=== PATIENT | female | born 1995 | race Caucasian/White ===

== ENCOUNTER 2017-01-16 14:10 | Emergency (ER) | payer OTHER ==
--- NOTE | 2017-01-16 15:35 | ED CLINICAL REPORT ---
Clinical Report - Physicians/Mid Levels [facility] [address] [place] [address] 01/16/2017 14:12 Patient: KATHERINE LIN Time Seen: 15:26; initial patient contact. Arrived- By private vehicle. Historian- patient. HISTORY OF PRESENT ILLNESS Chief Complaint: COUGH, SORE THROAT and SINUS PAIN. This started 3 days and is still present. The illness is described as mild. The patient has had sputum production, a cough, a sore throat, nasal congestion and sinus drainage. She has had chills and a nasal discharge. No difficulty breathing, chest discomfort or pain or fever. Additional history - The patient has had contact with a sick individual. Similar symptoms previously: Many times. Recent medical care: Not recently seen/assessed. REVIEW OF SYSTEMS No headache, eye discomfort or enlarged lymph nodes. All systems otherwise negative, except as recorded above. PAST HISTORY See nurses notes. Problems: Irritable Bowel Syndrome. Back Pain. Otitis Media. . . Conjunctivitis. Myofascial Strain. Bronchitis. Medications: None. Allergies: Amoxicillin. Compazine. Penicillin. Sulfa Antibiotics. SOCIAL HISTORY No alcohol use or drug use. FAMILY HISTORY Negative. ADDITIONAL NOTES The nursing notes have been reviewed with agreement regarding the chief complaint, HPI, ROS, PMH and patient medications and allergies. PHYSICAL EXAM Vital Signs: 01/16/2017 14:57 BP: 103/45. HR: 71. RR: 18. O2 saturation: 100%. Temp: 98.7 F. Have been reviewed. Appearance: Alert. No acute distress. Eyes: Pupils equal, round and reactive to light. Eyes normal inspection. ENT: Ears normal. Nose normal. Pharynx normal. Uvula midline. Neck: Normal inspection. Neck supple. CVS: Normal heart rate and rhythm. Heart sounds normal. Respiratory: No respiratory distress. Breath sounds normal. Abdomen: Soft and nontender. No organomegaly. CLINICAL IMPRESSION Acute viral rhinitis. Acute rotavirus gastroenteritis. No volume depletion or dehydration. INSTRUCTIONS No strenuous activity today. Do not work for two days until better. Take clear liquids only for the next 24 hours. Advance diet as tolerated. Do not smoke. No alcohol. Warnings: GENERAL WARNINGS: Return or contact your physician immediately if your condition worsens or changes unexpectedly, if not improving as expected, or if other problems arise. Prescription Medications: Zofran (orally disintegrating tablets) 4 mg: take 1 orally every 6 hours for 2 days as needed for nausea and vomiting. Dispense ten (10). No refill. Substitution is permissible. Fluticasone nasal spray: 1 spray to each nostril daily for congestion, until symptoms improve. Dispense one (1) unit. No refills. Follow-up: Follow up with your doctor Wednesday if not well. Understanding of the discharge instructions verbalized by patient. (Electronically signed by Kenzie Charles PA-C 01/16/2017 16:25)
--- NOTE | 2017-01-16 15:35 | ED ORDER SUMMARY ---
..... Patient: KATHERINE LIN OrderSheet [facility] VisitID: [id number] [address] [place] [address] 21y, F Registration Date/Time: 01/16/2017 ORDER SHEET Weight: 92.9 kg (stated) Allergies: Amoxicillin, Compazine, Penicillin, Sulfa Antibiotics GENERAL ORDERS: Urine Urgent (15:01/16/2017 Susan WIGGINS) (Ack 15:34 Nayeli) (15:38 Nena R.N.) UA-Culture if indicated Urgent (15:01/16/2017 Susan WIGGINS) (Ack 15:34 Nayeli) (15:38 Nena R.N.) MEDICATION ORDERS: IV FLUIDS: ORDER SHEET NOTES: [Electronically signed by Rosetta Bullard R.N. (16:01/16/2017)] [Electronically signed by Kenzie Charles PA-C (16:01/16/2017)] [Electronically locked/signed by Rosetta Bullard R.N. (16:01/16/2017)]
--- NOTE | 2017-01-16 15:35 | ED CLINICAL REPORT ---
Clinical Report - Physicians/Mid Levels [facility] [address] [place] [address] 01/16/2017 14:12 Patient: KATHERINE LIN Time Seen: 15:26; initial patient contact. Arrived- By private vehicle. Historian- patient. HISTORY OF PRESENT ILLNESS Chief Complaint: COUGH, SORE THROAT and SINUS PAIN. This started 3 days and is still present. The illness is described as mild. The patient has had sputum production, a cough, a sore throat, nasal congestion and sinus drainage. She has had chills and a nasal discharge. No difficulty breathing, chest discomfort or pain or fever. Additional history - The patient has had contact with a sick individual. Similar symptoms previously: Many times. Recent medical care: Not recently seen/assessed. REVIEW OF SYSTEMS No headache, eye discomfort or enlarged lymph nodes. All systems otherwise negative, except as recorded above. PAST HISTORY See nurses notes. Problems: Irritable Bowel Syndrome. Back Pain. Otitis Media. . . Conjunctivitis. Myofascial Strain. Bronchitis. Medications: None. Allergies: Amoxicillin. Compazine. Penicillin. Sulfa Antibiotics. SOCIAL HISTORY No alcohol use or drug use. FAMILY HISTORY Negative. ADDITIONAL NOTES The nursing notes have been reviewed with agreement regarding the chief complaint, HPI, ROS, PMH and patient medications and allergies. PHYSICAL EXAM Vital Signs: 01/16/2017 14:57 BP: 103/45. HR: 71. RR: 18. O2 saturation: 100%. Temp: 98.7 F. Have been reviewed. Appearance: Alert. No acute distress. Eyes: Pupils equal, round and reactive to light. Eyes normal inspection. ENT: Ears normal. Nose normal. Pharynx normal. Uvula midline. Neck: Normal inspection. Neck supple. CVS: Normal heart rate and rhythm. Heart sounds normal. Respiratory: No respiratory distress. Breath sounds normal. Abdomen: Soft and nontender. No organomegaly. CLINICAL IMPRESSION Acute viral rhinitis. Acute rotavirus gastroenteritis. No volume depletion or dehydration. INSTRUCTIONS No strenuous activity today. Do not work for two days until better. Take clear liquids only for the next 24 hours. Advance diet as tolerated. Do not smoke. No alcohol. Warnings: GENERAL WARNINGS: Return or contact your physician immediately if your condition worsens or changes unexpectedly, if not improving as expected, or if other problems arise. Prescription Medications: Zofran (orally disintegrating tablets) 4 mg: take 1 orally every 6 hours for 2 days as needed for nausea and vomiting. Dispense ten (10). No refill. Substitution is permissible. Fluticasone nasal spray: 1 spray to each nostril daily for congestion, until symptoms improve. Dispense one (1) unit. No refills. Follow-up: Follow up with your doctor Wednesday if not well. Understanding of the discharge instructions verbalized by patient. (Electronically signed by Kenzie Charles PA-C 01/16/2017 16:25)
--- NOTE | 2017-01-16 15:35 | ED NURSING NOTES ---
Clinical Report - Nurses [facility] [place] [address] 01/16/2017 14:12 Patient: KATHERINE LIN TRIAGE Triage time 14:53. Acuity: LEVEL 4. Chief Complaint: NAUSEA, VOMITING and DIARRHEA. Alert. No acute distress. ( Pt. denies abd. pain but is concerned because she is nauseated and does not have an appetite. No emesis noted during triage. Pt states she had x4 episodes of vomiting last night.). SEPSIS SCREEN: Sepsis Screen. Negative (no infection suspected/documented). CURTIS COMA SCORE: [place] Coma Scale: 15- eyes open spontaneously (4); best verbal response- oriented x 4 (5); best motor response- obeys commands (6). --15:02 Rosetta Bullard R.N. 14:57 01/16/17. BP: 103/45. HR: 71. RR: 18. O2 saturation: 100%. Temp: 98.7 F. Pain level now 0/10. --15:02 Rosetta Bullard R.N. Weight: 92.9 kg stated. Height/Length: 62 inches Per Patient. BMI: 37.5. --14:59 Rosetta Bullard R.N. Medications None. --15:01 Rosetta Bullard R.N. Allergies Amoxicillin. Compazine. Penicillin. Sulfa Antibiotics. --15:01 Rosetta Bullard R.N. History Arrived by private vehicle. Historian: patient. Accompanied by (boyfriend). Primary physician ([facility] in [place]). Onset. (2 days ago). 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 PAST MEDICAL HX: Immunizations: up-to-date. Last normal menstrual period- 2 week ago. SOCIAL HX: Never smoker. No alcohol use or drug use. No recent travel. No known contact with a sick individual. ABUSE ASSESSMENT: Abuse assessment: The patient was asked "Do you feel safe in your home?" and "Has anyone hurt you or threatened to hurt you?". No report of abuse. NUTRITIONAL RISK ASSESSMENT: The nutritional risk assessment revealed no deficiencies. FUNCTIONAL ASSESSMENT: Functional assessment: no impairments noted. LEARNING NEEDS ASSESSMENT: The learning needs assessment revealed no barriers. --15:02 Rosetta Bullard R.N. PROBLEMS: Irritable Bowel Syndrome. Back Pain. Otitis Media. . Allergic Reaction. Conjunctivitis. URI. Myofascial Strain. Sciatica. Diarrhea. Fall. Contusion. Asthma. --15: Rosetta Bullard R.N. ADDITIONAL SURGERIES: Appendectomy. Dental Surgery. --15:01 Rosetta Bullard R.N. Interventions ID band on patient. Ambulatory. --15:02 Rosetta Bullard R.N. PHYSICAL ASSESSMENT Ambulatory to room. GENERAL / NEURO / PSYCH: Alert. Appears in no acute distress. HEENT: Mucous membranes are pink. RESPIRATORY: Respirations not labored. CVS: Capillary refill less than 2 seconds. GI / : Abdomen soft and nontender. SKIN: Skin is warm and dry. --15:02 Rosetta Bullard R.N. NURSING PROGRESS NOTES Patient gowned. Head of bed elevated. Two patient identifiers checked. Call light placed in reach. Side rails up x 2. Bed placed in lowest position. Brakes of bed on. Patient ready for evaluation- chart flagged. --15:02 Rosetta Bullard R.N. Patient ID band checked for patient name, birthdate and medical record number: patient confirmed. Instructions provided to collect clean catch urine and patient verbalized understanding. Clean catch urine collected with return of yellow-colored clear urine; sample sent to lab for urinalysis. Specimen labeled in the presence of the patient. --15:03 Rosetta Bullard R.N. DISPOSITION / DISCHARGE 13:40 01/16/17. RR: 15. Additional comments: d/c v/s deferred due to pt. in ED < 1 hour. Pt. appears stable and comfortable at time of discharge. . --16:01 Rosetta Bullard R.N. 13:40. Condition at departure: stable. No learning barriers present. Discharge instructions provided and reviewed with the patient. Reviewed medication(s) side effects, precautions, dosing and course information. Prescription(s) given to the patient. Reviewed referral to family practice for followup. Patient verbalized understanding. Written instructions provided in Greenlandic. The patient was discharged home and accompanied by marketing sales manager. She left the Emergency Department ambulatory and via private vehicle. Ramp Supervisor driving. Medication list reviewed and validated. --16:02 Rosetta Bullard R.N. Departure time: 1340. --16:02 Rosetta Bullard R.N. Locked/Released at 01/16/2017 16:02 by Rosetta Bullard R.N.
--- NOTE | 2017-01-16 15:35 | ED ORDER SUMMARY ---
..... Patient: KATHERINE LIN OrderSheet [facility] VisitID: [id number] [address] [place] [address] 21y, F Registration Date/Time: 01/16/2017 ORDER SHEET Weight: 92.9 kg (stated) Allergies: Amoxicillin, Compazine, Penicillin, Sulfa Antibiotics GENERAL ORDERS: Urine Urgent (15:01/16/2017 Susan WIGGINS) (Ack 15:34 Nayeli) (15:38 Nena R.N.) UA-Culture if indicated Urgent (15:01/16/2017 Susan WIGGINS) (Ack 15:34 Nayeli) (15:38 Nena R.N.) MEDICATION ORDERS: IV FLUIDS: ORDER SHEET NOTES: [Electronically signed by Rosetta Bullard R.N. (16:01/16/2017)] [Electronically signed by Kenzie Charles PA-C (16:01/16/2017)] [Electronically locked/signed by Rosetta Bullard R.N. (16:01/16/2017)]
--- NOTE | 2017-01-16 15:35 | ED NURSING NOTES ---
Clinical Report - Nurses [facility] [place] [address] 01/16/2017 14:12 Patient: KATHERINE LIN TRIAGE Triage time 14:53. Acuity: LEVEL 4. Chief Complaint: NAUSEA, VOMITING and DIARRHEA. Alert. No acute distress. ( Pt. denies abd. pain but is concerned because she is nauseated and does not have an appetite. No emesis noted during triage. Pt states she had x4 episodes of vomiting last night.). SEPSIS SCREEN: Sepsis Screen. Negative (no infection suspected/documented). CURTIS COMA SCORE: [place] Coma Scale: 15- eyes open spontaneously (4); best verbal response- oriented x 4 (5); best motor response- obeys commands (6). --15:02 Rosetta Bullard R.N. 14:57 01/16/17. BP: 103/45. HR: 71. RR: 18. O2 saturation: 100%. Temp: 98.7 F. Pain level now 0/10. --15:02 Rosetta Bullard R.N. Weight: 92.9 kg stated. Height/Length: 62 inches Per Patient. BMI: 37.5. --14:59 Rosetta Bullard R.N. Medications None. --15:01 Rosetta Bullard R.N. Allergies Amoxicillin. Compazine. Penicillin. Sulfa Antibiotics. --15:01 Rosetta Bullard R.N. History Arrived by private vehicle. Historian: patient. Accompanied by (boyfriend). Primary physician ([facility] in [place]). Onset. (2 days ago). 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 PAST MEDICAL HX: Immunizations: up-to-date. Last normal menstrual period- 2 week ago. SOCIAL HX: Never smoker. No alcohol use or drug use. No recent travel. No known contact with a sick individual. ABUSE ASSESSMENT: Abuse assessment: The patient was asked "Do you feel safe in your home?" and "Has anyone hurt you or threatened to hurt you?". No report of abuse. NUTRITIONAL RISK ASSESSMENT: The nutritional risk assessment revealed no deficiencies. FUNCTIONAL ASSESSMENT: Functional assessment: no impairments noted. LEARNING NEEDS ASSESSMENT: The learning needs assessment revealed no barriers. --15:02 Rosetta Bullard R.N. PROBLEMS: Irritable Bowel Syndrome. Back Pain. Otitis Media. . Allergic Reaction. Conjunctivitis. URI. Myofascial Strain. Sciatica. Diarrhea. Fall. Contusion. Asthma. --15: Rosetta Bullard R.N. ADDITIONAL SURGERIES: Appendectomy. Dental Surgery. --15:01 Rosetta Bullard R.N. Interventions ID band on patient. Ambulatory. --15:02 Rosetta Bullard R.N. PHYSICAL ASSESSMENT Ambulatory to room. GENERAL / NEURO / PSYCH: Alert. Appears in no acute distress. HEENT: Mucous membranes are pink. RESPIRATORY: Respirations not labored. CVS: Capillary refill less than 2 seconds. GI / : Abdomen soft and nontender. SKIN: Skin is warm and dry. --15:02 Rosetta Bullard R.N. NURSING PROGRESS NOTES Patient gowned. Head of bed elevated. Two patient identifiers checked. Call light placed in reach. Side rails up x 2. Bed placed in lowest position. Brakes of bed on. Patient ready for evaluation- chart flagged. --15:02 Rosetta Bullard R.N. Patient ID band checked for patient name, birthdate and medical record number: patient confirmed. Instructions provided to collect clean catch urine and patient verbalized understanding. Clean catch urine collected with return of yellow-colored clear urine; sample sent to lab for urinalysis. Specimen labeled in the presence of the patient. --15:03 Rosetta Bullard R.N. DISPOSITION / DISCHARGE 13:40 01/16/17. RR: 15. Additional comments: d/c v/s deferred due to pt. in ED < 1 hour. Pt. appears stable and comfortable at time of discharge. . --16:01 Rosetta Bullard R.N. 13:40. Condition at departure: stable. No learning barriers present. Discharge instructions provided and reviewed with the patient. Reviewed medication(s) side effects, precautions, dosing and course information. Prescription(s) given to the patient. Reviewed referral to family practice for followup. Patient verbalized understanding. Written instructions provided in Sinhala. The patient was discharged home and accompanied by spring former hand. She left the Emergency Department ambulatory and via private vehicle. County Extension Agent driving. Medication list reviewed and validated. --16:02 Rosetta Bullard R.N. Departure time: 1340. --16:02 Rosetta Bullard R.N. Locked/Released at 01/16/2017 16:02 by Rosetta Bullard R.N.
--- NOTE | 2017-01-16 16:25 | ED DISCHARGE INSTRUCTIONS ---
Patient: KATHERINE LIN General Instructions [facility] VisitID: [id number] [place] [address] 21y, F Registration Date/Time: 01/16/2017 Acute viral rhinitis. Acute rotavirus gastroenteritis. No volume depletion or dehydration. INSTRUCTIONS No strenuous activity today. Do not work for two days until better. Take clear liquids only for the next 24 hours. Advance diet as tolerated. Do not smoke. No alcohol. Warnings: GENERAL WARNINGS: Return or contact your physician immediately if your condition worsens or changes unexpectedly, if not improving as expected, or if other problems arise. Prescription Medications: Zofran (orally disintegrating tablets) 4 mg: take 1 orally every 6 hours for 2 days as needed for nausea and vomiting. Dispense ten (10). No refill. Substitution is permissible. Fluticasone nasal spray: 1 spray to each nostril daily for congestion, until symptoms improve. Dispense one (1) unit. No refills. Follow-up: Follow up with your doctor Wednesday if not well. Understanding of the discharge instructions verbalized by patient. ADDITIONAL INFORMATION Viral Respiratory Illness [Adult] You have an Upper Respiratory Illness (URI) caused by a virus. This illness is contagious during the first few days. It is spread through the air by coughing and sneezing or by direct contact (touching the sick person and then touching your own eyes, nose or mouth). Most viral illnesses go away within 7-10 days with rest and simple home remedies. Sometimes, the illness may last for several weeks. Antibiotics will not kill a virus and are generally not prescribed for this condition. Home Care: 1) If symptoms are severe, rest at home for the first 2-3 days. When you resume activity, don't let yourself get too tired. 2) Avoid being exposed to cigarette smoke (yours or others). 3) Tylenol (acetaminophen) or ibuprofen (Advil, Motrin) will help fever, muscle aching and headache. (Persons under 18 with fever should not take aspirin since this may cause liver damage.) 4) Your appetite may be poor, so a light diet is fine. Avoid dehydration by drinking 6-8 glasses of fluids per day (water, soft drinks, juices, tea, soup). Extra fluids will help loosen secretions in the nose and lungs. 5) Bcnp-tiw-lvuhano cold medicines will not shorten the length of time youre sick, but they may be helpful for the following symptoms: cough (Robitussin DM); sore throat (Chloraseptic lozenges or spray); nasal and sinus congestion (Actifed, Sudafed, Chlortrimeton). Follow Up with your doctor or as advised if you dont improve over the next week. Get Prompt Medical Attention if any of the following occur: -- Cough with lots of colored sputum (mucus) or blood in your sputum -- Chest pain, shortness of breath, wheezing or have trouble breathing -- Severe headache; face, neck or ear pain -- Fever over 100.4 F (38.0 C) for more than three days -- You cant swallow due to throat pain Viral Gastroenteritis (6Yr-Adult) Gastroenteritis is another name for thestomach flu.It is most often caused by a virus that affects the stomach and intestinal tract. Symptoms include stomach cramping and fever, vomiting and/or diarrhea, and can last from 2 to 7 days. The danger from repeated vomiting or diarrhea is dehydration. This is the loss of too much water and minerals from the body. When this occurs, body fluids must be replaced. Antibiotics are not effective for this illness, but simple home treatment will be helpful. Home Care If symptoms are severe, rest at home for the next 24 hours. Avoid tobacco, caffeine, and alcohol use, which can worsen symptoms. Acetaminophen (Tylenol) or ibuprofen (Motrin, Advil) may be usedfor fever or pain unless another medication was prescribed. NOTE: If you have chronic liver or kidney disease or ever had a stomach ulcer or GI bleeding, talk with your doctor before using these medicines. Aspirin should never be used in anyone under 18 years of age who is ill with a fever. It may cause severe liver damage. If medicines for diarrhea or vomiting were prescribed, be sure they are takenonly as directed. If vomiting, drink small amounts of clear fluids (such as water, sports drinks, clear sodas) at frequent intervals to prevent dehydration. Start with 1 to 2 tablespoons every 10 minutes. Once vomiting stops, follow these guidelines: During The First 12 To 24 Hours follow the diet below: Beverages: Sport drinks like Gatorade, soft drinks without caffeine; karo kd, mineral water (plain or flavored), decaffeinated tea and coffee. Soups: Clear broth, consomm and bouillon Desserts: Plain gelatin (Jell-O), Popsicles and fruit juice bars. During The Next 24 Hours you may add the following to the above: Hot cereal, plain toast, bread, rolls, crackers Plain noodles, rice, mashed potatoes, chicken noodle or rice soup Unsweetened canned fruit (avoid pineapple), bananas Limit fat intake to less than 15 grams per day by avoiding margarine, butter, oils, mayonnaise, sauces, gravies, fried foods, peanut butter, meat, poultry, and fish. Limit fiber; avoid raw or cooked vegetables, fresh fruits (except bananas), and bran cereals. Limit caffeine and chocolate. Do not use spices or seasonings except salt. During The Next 24 Hours The patient can gradually resume a normal diet as symptoms lessen. Preventing Spread Hand washing with soap and water is the best way to prevent the spread of viruses. Caregivers should wash their hands before andafter touching the sick person. The sick person, as well as everyone in the family,should wash their hands after using the toilet and before meals. Clean the toilet after each use. People with diarrhea should not prepare food for others. If you are preparing your own foods, wash your hands before and after. Follow Up with your doctor as advised. Call your doctor if you are not improving over the next 2 to 3 days. If a stool (diarrhea) sample was taken, you may call in 2 days (or as directed) for the results. Get Prompt Medical Attention if any of the following occur: Increasing abdominal pain Continued vomiting (unable to keep liquids down) Frequent diarrhea (more than 5 times a day) Blood in vomit or stool (black or red color) Dark urine, reduced urine output, or extreme thirst Weakness, dizziness, fainting Drowsiness, confusion, stiff neck, or seizure Fever of 100.4F (38C) oral or higher, not better with fever medication New rash You have been given the following additional information: Uri, Viral, No Abx (Adult) Gastroenteritis, Viral (6Y-Adult) No strenuous activity today. Do not work for two days until better. (Electronically signed by Kenzie Charles PA-C 01/16/2017 16:25)
--- NOTE | 2017-01-16 16:25 | ED MAR SUMMARY ---
..... Medication Administration Record [facility] [address] [place], [place] [id number] Patient: KATHERINE LIN Visit ID: [id number] 21y, F Weight: 92.9 kg Height/Length: 62 in BMI: 37.5 ALLERGIES: Amoxicillin, Compazine, Penicillin, Sulfa Antibiotics
--- NOTE | 2017-01-16 16:25 | ED MED RECONCILIATION SUMMARY ---
Patient: KATHERINE LIN Medication Reconciliation Report [facility] VisitID: [id number] [place] [address] 21y, F Registration Date/Time: 01/16/2017 Weight: 92.9 kg Height/Length: 62 in. BMI: 37.5 ALLERGIES: Amoxicillin, Compazine, Penicillin, Sulfa Antibiotics The patient's Home Medications are listed below: NONE. The source(s) of the original Home Medication information: Not obtained. The following Medications were given to the patient in the Emergency Department: None. The following Medications were prescribed to the patient: Zofran (orally disintegrating tablets) 4 mg: take 1 orally every 6 hours for 2 days as needed for nausea and vomiting. Dispense ten (10). No refill. Substitution is permissible. -- Kenzie Charles PA-C Fluticasone nasal spray: 1 spray to each nostril daily for congestion, until symptoms improve. Dispense one (1) unit. No refills. -- Kenzie Charles PA-C
--- NOTE | 2017-01-16 16:25 | ED MAR SUMMARY ---
..... Medication Administration Record [facility] [address] [place], [place] [id number] Patient: KATHERINE LIN Visit ID: [id number] 21y, F Weight: 92.9 kg Height/Length: 62 in BMI: 37.5 ALLERGIES: Amoxicillin, Compazine, Penicillin, Sulfa Antibiotics
--- NOTE | 2017-01-16 16:25 | ED MED RECONCILIATION SUMMARY ---
Patient: KATHERINE LIN Medication Reconciliation Report [facility] VisitID: [id number] [place] [address] 21y, F Registration Date/Time: 01/16/2017 Weight: 92.9 kg Height/Length: 62 in. BMI: 37.5 ALLERGIES: Amoxicillin, Compazine, Penicillin, Sulfa Antibiotics The patient's Home Medications are listed below: NONE. The source(s) of the original Home Medication information: Not obtained. The following Medications were given to the patient in the Emergency Department: None. The following Medications were prescribed to the patient: Zofran (orally disintegrating tablets) 4 mg: take 1 orally every 6 hours for 2 days as needed for nausea and vomiting. Dispense ten (10). No refill. Substitution is permissible. -- Kenzie Charles PA-C Fluticasone nasal spray: 1 spray to each nostril daily for congestion, until symptoms improve. Dispense one (1) unit. No refills. -- Kenzie Charles PA-C
== END 2017-01-16 15:42 | disposition home or self-care (01) ==
LOC: ED SRH 14:10
DX: J00 Acute nasopharyngitis [common cold] (principal); A08.0 Rotaviral enteritis; Z88.0 Allergy status to penicillin; Z88.2 Allergy status to sulfonamides; Z88.1 Allergy status to other antibiotic agents
CPT/HCPCS: 90004; 93070

== ENCOUNTER 2017-03-19 01:54 | Emergency (ER) | payer OTHER ==
--- NOTE | 2017-03-19 03:12 | ED ORDER SUMMARY ---
..... Patient: KATHERINE LIN OrderSheet [facility] VisitID: [id number] [address] [place] [address] 21y, F Registration Date/Time: 03/19/2017 ORDER SHEET Weight: 92.9 kg (stated) Allergies: Amoxicillin, Compazine, Penicillin, Sulfa Antibiotics GENERAL ORDERS: Urine Urgent (:03/19/2017 RMarsden R.N. per protocol) (Ack 2:24 AMcQuoid ER Tech1) (3:06 RMarsden R.N.) UA-Culture if indicated Urgent (:03/19/2017 RMarsden R.N. per protocol) (Ack 2:24 AMcQuoid ER Tech1) (3:06 RMarsden R.N.) MEDICATION ORDERS: IV FLUIDS: ORDER SHEET NOTES: [Electronically signed by Aiyana Armendariz R.N. (03/19/2017)] [Electronically signed by Shantanu Hughes MD (03/25/2017)] [Electronically locked/signed by Aiyana Armendariz R.N. (03/19/2017)]
--- NOTE | 2017-03-19 03:12 | ED NURSING NOTES ---
Clinical Report - Nurses [facility] [address] [place] [address] 03/19/2017 1:54 [id number] TRI[facility] Triage time 02:03. Acuity: LEVEL 4. Chief Complaint: (L sided cramping). 02:11 03/19/17. Alert. No acute distress. SEPSIS SCREEN: Sepsis Screen. Negative (no infection suspected/documented). CURTIS COMA SCORE: [place] Coma Scale: 15- eyes open spontaneously (4); best verbal response- oriented x 4 (5); best motor response- obeys commands (6). --02:11 Aiyana Armendariz R.N. 02:16 03/19/17. --02:16 Aiyana Armendariz R.N. 02:15 03/19/17. BP: 124/48 (large adult cuff) taken on the right arm, while sitting. HR: 80. RR: 16. O2 saturation: 98%. Temp: 98.3 F. Pain level now: 04/03. --02:16 Aiyana Armendariz R.N. Weight: 92.9 kg stated. Height/Length: 62 inches Per Patient. BMI: 37.5. --02:10 Aiyana Armendariz R.N. Medications None. --02:04 Aiyana Armendariz R.N. Allergies Amoxicillin. Compazine. Penicillin. Sulfa Antibiotics. --02:04 Aiyana Armendariz R.N. History Arrived by private vehicle. Historian: patient. Accompanied by (boyfriend). Onset. (3 hours ago). ( Patient states she was 11 days late for her period. She states "This period just feels different". She reports cramping that has not resolved with a hot pack or ibuprofen, and has kept her from falling asleep. She states there is a chance she could be .). She has had vomiting. ( Patient reports change in appetite. She has been vomiting over the past 2 days after meals (about twice daily).). PAST MEDICAL HX: Immunizations: up-to-date. Last normal menstrual period now. SOCIAL HX: Never smoker. No alcohol use or drug use. FALL RISK ASSESSMENT: Fall risk assessment completed. No fall risk identified. NUTRITIONAL RISK ASSESSMENT: The nutritional risk assessment revealed no deficiencies. FUNCTIONAL ASSESSMENT: Functional assessment: no impairments noted. LEARNING NEEDS ASSESSMENT: The learning needs assessment revealed no barriers. SKIN INTEGRITY ASSESSMENT: Skin integrity risk assessment completed. No skin integrity risk identified. --02:11 Aiyana Armendariz R.N. PROBLEMS: Gastroenteritis. Irritable Bowel Syndrome. Back Pain. Otitis Media. . Allergic Reaction. . Conjunctivitis. URI. Myofascial Strain. Sciatica. Diarrhea. Abdominal Pain. Fall. Contusion. Tetanus Status. Immunizations. Bronchitis. LNMP - Last Normal Menstrual Period. Asthma. --02:05 Aiyana Armendariz R.N. ADDITIONAL SURGERIES: Appendectomy. Dental Surgery. --02:05 Aiyana Armendariz R.N. Interventions ID band on patient. To treatment room. --02:11 Aiyana Armendariz R.N. PHYSICAL ASSESSMENT 02:15 03/19/17. Ambulatory to room. GENERAL / NEURO / PSYCH: Alert. Oriented X 4. Appears in no acute distress. HEENT: Mucous membranes are pink. RESPIRATORY: Respirations not labored. Breath sounds within normal limits. CVS: Capillary refill less than 2 seconds. GI / : Abdomen soft and nontender. Bowel sounds within normal limits. SKIN: Skin is warm and dry. --02:15 Aiyana Armendariz R.N. NURSING PROGRESS NOTES 02:25 03/19/17. Patient gowned. Patient ID band checked for patient name and birthdate: patient confirmed. Instructions provided to collect clean catch urine and patient verbalized understanding. Clean catch urine collected with return of bloody urine, blood clots noted; odor is normal; sample sent to lab for urinalysis and HCG. Specimen labeled in the presence of the patient. Two patient identifiers checked. Call light placed in reach. Side rails up x 2. Bed placed in lowest position. Brakes of bed on. Patient ready for evaluation- chart flagged and notification provided. --02:25 Aiyana Armendariz R.N. DISPOSITION / DISCHARGE 03:16 03/19/17. No learning barriers present. Discharge instructions provided and reviewed with the patient. Reviewed warnings. Reviewed medication(s). Treatments reviewed. Activity restrictions reviewed. Patient verbalized understanding. Written instructions provided in Armenian. The patient was discharged home and accompanied by batcher operator. She left the Emergency Department ambulatory and via private vehicle. Sexual Assault Response Coordinator driving. --03:16 Aiyana Armendariz R.N. 03:14 03/19/17. BP: 109/61. HR: 78. RR: 16. O2 saturation: 100%. Temp: deferred. Pain level now: 02/01. --03:16 Aiyana Armendraiz R.N. Departure time: 03:19. --03:19 Aiyana Armendariz R.N. Locked/Released at 03/19/2017 3:26 by Aiyana Armendariz R.N.
--- NOTE | 2017-03-19 03:12 | ED NURSING NOTES ---
Clinical Report - Nurses [facility] [address] [place] [address] 03/19/2017 1:54 [id number] TRI[facility] Triage time 02:03. Acuity: LEVEL 4. Chief Complaint: (L sided cramping). 02:11 03/19/17. Alert. No acute distress. SEPSIS SCREEN: Sepsis Screen. Negative (no infection suspected/documented). CURTIS COMA SCORE: [place] Coma Scale: 15- eyes open spontaneously (4); best verbal response- oriented x 4 (5); best motor response- obeys commands (6). --02:11 Aiyana Armendariz R.N. 02:16 03/19/17. --02:16 Aiyana Armenadriz R.N. 02:15 03/19/17. BP: 124/48 (large adult cuff) taken on the right arm, while sitting. HR: 80. RR: 16. O2 saturation: 98%. Temp: 98.3 F. Pain level now: 04/03. --02:16 Aiyana Armendariz R.N. Weight: 92.9 kg stated. Height/Length: 62 inches Per Patient. BMI: 37.5. --02:10 Aiyana Armendariz R.N. Medications None. --02:04 Aiyana Armendariz R.N. Allergies Amoxicillin. Compazine. Penicillin. Sulfa Antibiotics. --02:04 Aiyana Armendariz R.N. History Arrived by private vehicle. Historian: patient. Accompanied by (boyfriend). Onset. (3 hours ago). ( Patient states she was 11 days late for her period. She states "This period just feels different". She reports cramping that has not resolved with a hot pack or ibuprofen, and has kept her from falling asleep. She states there is a chance she could be .). She has had vomiting. ( Patient reports change in appetite. She has been vomiting over the past 2 days after meals (about twice daily).). PAST MEDICAL HX: Immunizations: up-to-date. Last normal menstrual period now. SOCIAL HX: Never smoker. No alcohol use or drug use. FALL RISK ASSESSMENT: Fall risk assessment completed. No fall risk identified. NUTRITIONAL RISK ASSESSMENT: The nutritional risk assessment revealed no deficiencies. FUNCTIONAL ASSESSMENT: Functional assessment: no impairments noted. LEARNING NEEDS ASSESSMENT: The learning needs assessment revealed no barriers. SKIN INTEGRITY ASSESSMENT: Skin integrity risk assessment completed. No skin integrity risk identified. --02:11 Aiyana Armendariz R.N. PROBLEMS: Gastroenteritis. Irritable Bowel Syndrome. Back Pain. Otitis Media. . Allergic Reaction. . Conjunctivitis. URI. Myofascial Strain. Sciatica. Diarrhea. Abdominal Pain. Fall. Contusion. Tetanus Status. Immunizations. Bronchitis. LNMP - Last Normal Menstrual Period. Asthma. --02:05 Aiyana Armendariz R.N. ADDITIONAL SURGERIES: Appendectomy. Dental Surgery. --02:05 Aiyana Armendariz R.N. Interventions ID band on patient. To treatment room. --02:11 Aiyana Armendariz R.N. PHYSICAL ASSESSMENT 02:15 03/19/17. Ambulatory to room. GENERAL / NEURO / PSYCH: Alert. Oriented X 4. Appears in no acute distress. HEENT: Mucous membranes are pink. RESPIRATORY: Respirations not labored. Breath sounds within normal limits. CVS: Capillary refill less than 2 seconds. GI / : Abdomen soft and nontender. Bowel sounds within normal limits. SKIN: Skin is warm and dry. --02:15 Aiyana Armendariz R.N. NURSING PROGRESS NOTES 02:25 03/19/17. Patient gowned. Patient ID band checked for patient name and birthdate: patient confirmed. Instructions provided to collect clean catch urine and patient verbalized understanding. Clean catch urine collected with return of bloody urine, blood clots noted; odor is normal; sample sent to lab for urinalysis and HCG. Specimen labeled in the presence of the patient. Two patient identifiers checked. Call light placed in reach. Side rails up x 2. Bed placed in lowest position. Brakes of bed on. Patient ready for evaluation- chart flagged and notification provided. --02:25 Aiyana Armendariz R.N. DISPOSITION / DISCHARGE 03:16 03/19/17. No learning barriers present. Discharge instructions provided and reviewed with the patient. Reviewed warnings. Reviewed medication(s). Treatments reviewed. Activity restrictions reviewed. Patient verbalized understanding. Written instructions provided in French. The patient was discharged home and accompanied by cloth measurer. She left the Emergency Department ambulatory and via private vehicle. Financial Controller driving. --03:16 Aiyana Armendariz R.N. 03:14 03/19/17. BP: 109/61. HR: 78. RR: 16. O2 saturation: 100%. Temp: deferred. Pain level now: 02/01. --03:16 Aiyana Armendariz R.N. Departure time: 03:19. --03:19 Aiyana Armendariz R.N. Locked/Released at 03/19/2017 3:26 by Aiyana Armendariz R.N.
--- NOTE | 2017-03-19 03:12 | ED ORDER SUMMARY ---
..... Patient: KATHERINE LIN OrderSheet [facility] VisitID: [id number] [address] [place] [address] 21y, F Registration Date/Time: 03/19/2017 ORDER SHEET Weight: 92.9 kg (stated) Allergies: Amoxicillin, Compazine, Penicillin, Sulfa Antibiotics GENERAL ORDERS: Urine Urgent (:03/19/2017 RMarsden R.N. per protocol) (Ack 2:24 AMcQuoid ER Tech1) (3:06 RMarsden R.N.) UA-Culture if indicated Urgent (:03/19/2017 RMarsden R.N. per protocol) (Ack 2:24 AMcQuoid ER Tech1) (3:06 RMarsden R.N.) MEDICATION ORDERS: IV FLUIDS: ORDER SHEET NOTES: [Electronically signed by Aiyana Armendariz R.N. (03/19/2017)] [Electronically signed by Shantanu Hughes MD (03/25/2017)] [Electronically locked/signed by Aiyana Armendariz R.N. (03/19/2017)]
--- NOTE | 2017-03-19 03:12 | ED CLINICAL REPORT ---
Clinical Report - Physicians/Mid Levels [facility] [address] [place] [address] 03/19/2017 1:54 Patient: KATHERINE LIN Time Seen: 02:21. Arrived- By private vehicle. Historian- patient. HISTORY OF PRESENT ILLNESS Chief Complaint: FLANK PAIN. It is described as cramping and it is described as located in the left abdomen. This started several hours ago and is still present. It was abrupt in onset and has been constant and waxing/waning. The patient has had nausea. She has had moderate vomiting (for 2 days). The vomiting has occurred several times. REVIEW OF SYSTEMS The patient has had abnormal bleeding (Patient states she was 11 days late for her period. She states "This period just feels different". She reports cramping that has not resolved with a hot pack or ibuprofen, and has kept her from falling asleep. She states there is a chance she could be ). Her periods have been recently irregular. No chills, fever, sweats, calf pain or chest pain. No cough, difficulty breathing, pedal edema, palpitations or black stools. No bloody stools. The patient has had urgency and frequency. All systems otherwise negative, except as recorded above. SOCIAL HISTORY Never smoker. No alcohol use or drug use. FAMILY HISTORY Denies family medical history. ADDITIONAL NOTES The nursing notes have been reviewed. PHYSICAL EXAM Vital Signs: 03/19/2017 02:15 BP: 124/48. HR: 80. RR: 16. O2 saturation: 98%. Temp: 98.3 F. Pain level now: 6/10. Have been reviewed. Appearance: Alert. Eyes: Pupils equal, round and reactive to light. ENT: Pharynx normal. Neck: Normal inspection. Neck supple. CVS: Normal heart rate and rhythm. Heart sounds normal. Respiratory: No respiratory distress. Breath sounds normal. Abdomen: Soft. Mild tenderness in the suprapubic area. Bowel sounds normal. No organomegaly. No mass. Back: Normal inspection. Skin: Skin warm and dry. Normal skin color. Normal skin turgor. Extremities: Extremities exhibit normal ROM. No calf tenderness. No lower extremity edema. LABS, X-RAYS, AND EKG Laboratory Tests: UA-Culture if indicated: (ERENDIRA: 03/19/2017 02:17) ( [facility] 03/19/2017 02:56) Final results Test Result Flag Units (Reference) URINE COLOR ORANGE URINE APPEARANCE TURBID URINE GLUCOSE NEGATIVE (NEGATIVE) URINE BILIRUBIN NEGATIVE (NEGATIVE) URINE KETONE NEGATIVE (NEGATIVE) URINE SPECIFIC GRAVITY 1.025 (1.010-1.030) URINE PH 6.0 (5.0-8.0) URINE PROTEIN TRACE (NEGATIVE) URINE UROBILINOGEN 0.2 EU/dL (0.2-1.0) URINE NITRITE NEGATIVE (NEGATIVE) URINE BLOOD 3+ (NEGATIVE) URINE [place] ESTERASE POSITIVE (NEGATIVE) URINE RBC >100 rbc/hpf (0-1) URINE WBC 25-50 wbc/hpf (0-1) URINE EPITHELIAL CELLS 0-1 EPI/hpf (0-5) URINE BACTERIA MODERATE (2+ TO 3+) (NONE SEEN) URINE COMMENT CULTURE INDICATED URINE CULTURES ARE SET-UP BASED ON THE FOLLOWING CRITERIA:POSITIVE NITRITEPOSITIVE LEUKOCYTE ESTERASEGREATER THAN 10 WHITE BLOOD CELLSMODERATE (2+) OR GREATER BACTERIA Urine: (ERENDIRA: 03/19/2017 02:17) ( [facility] 03/19/2017 02:35) Final results Test Result Flag Units (Reference) URINE NEGATIVE Culture, Urine: (ERENDIRA: 03/19/2017 02:17) ( [facility] 03/21/2017 12:33) Final results Test Result Flag Units (Reference) CULTURE, URINE DATE: 03/21/17 NO SIGNIFICANT ISOLATION: NO SIGNIFICANT ISOLATION PRELIM REPORT: FINAL REPORT . PROGRESS AND PROCEDURES Patient/family counseled. Old medical records reviewed. Disposition: Discharged. Condition: stable. CLINICAL IMPRESSION Mild vaginal bleeding. Acute urinary tract infection with cystitis. INSTRUCTIONS Drink plenty of fluids. Warnings: Further evaluation is necessary. GENERAL WARNINGS: Return or contact your physician immediately if your condition worsens or changes unexpectedly, if not improving as expected, or if other problems arise. Prescription Medications: Macrobid 100 mg: Take 1 capsule orally every 12 hours for 7 days. No refills. Substitution is permissible. Follow-up: Follow up with your doctor tomorrow. Call for the next available appointment. Understanding of the discharge instructions verbalized by patient. (Electronically signed by Shantanu Hughes MD 03/25/2017 9:27)
--- NOTE | 2017-03-19 03:12 | ED CLINICAL REPORT ---
Clinical Report - Physicians/Mid Levels [facility] [address] [place] [address] 03/19/2017 1:54 Patient: KATHERINE LIN Time Seen: 02:21. Arrived- By private vehicle. Historian- patient. HISTORY OF PRESENT ILLNESS Chief Complaint: FLANK PAIN. It is described as cramping and it is described as located in the left abdomen. This started several hours ago and is still present. It was abrupt in onset and has been constant and waxing/waning. The patient has had nausea. She has had moderate vomiting (for 2 days). The vomiting has occurred several times. REVIEW OF SYSTEMS The patient has had abnormal bleeding (Patient states she was 11 days late for her period. She states "This period just feels different". She reports cramping that has not resolved with a hot pack or ibuprofen, and has kept her from falling asleep. She states there is a chance she could be ). Her periods have been recently irregular. No chills, fever, sweats, calf pain or chest pain. No cough, difficulty breathing, pedal edema, palpitations or black stools. No bloody stools. The patient has had urgency and frequency. All systems otherwise negative, except as recorded above. SOCIAL HISTORY Never smoker. No alcohol use or drug use. FAMILY HISTORY Denies family medical history. ADDITIONAL NOTES The nursing notes have been reviewed. PHYSICAL EXAM Vital Signs: 03/19/2017 02:15 BP: 124/48. HR: 80. RR: 16. O2 saturation: 98%. Temp: 98.3 F. Pain level now: 6/10. Have been reviewed. Appearance: Alert. Eyes: Pupils equal, round and reactive to light. ENT: Pharynx normal. Neck: Normal inspection. Neck supple. CVS: Normal heart rate and rhythm. Heart sounds normal. Respiratory: No respiratory distress. Breath sounds normal. Abdomen: Soft. Mild tenderness in the suprapubic area. Bowel sounds normal. No organomegaly. No mass. Back: Normal inspection. Skin: Skin warm and dry. Normal skin color. Normal skin turgor. Extremities: Extremities exhibit normal ROM. No calf tenderness. No lower extremity edema. LABS, X-RAYS, AND EKG Laboratory Tests: UA-Culture if indicated: (ERENDIRA: 03/19/2017 02:17) ( [facility] 03/19/2017 02:56) Final results Test Result Flag Units (Reference) URINE COLOR ORANGE URINE APPEARANCE TURBID URINE GLUCOSE NEGATIVE (NEGATIVE) URINE BILIRUBIN NEGATIVE (NEGATIVE) URINE KETONE NEGATIVE (NEGATIVE) URINE SPECIFIC GRAVITY 1.025 (1.010-1.030) URINE PH 6.0 (5.0-8.0) URINE PROTEIN TRACE (NEGATIVE) URINE UROBILINOGEN 0.2 EU/dL (0.2-1.0) URINE NITRITE NEGATIVE (NEGATIVE) URINE BLOOD 3+ (NEGATIVE) URINE [place] ESTERASE POSITIVE (NEGATIVE) URINE RBC >100 rbc/hpf (0-1) URINE WBC 25-50 wbc/hpf (0-1) URINE EPITHELIAL CELLS 0-1 EPI/hpf (0-5) URINE BACTERIA MODERATE (2+ TO 3+) (NONE SEEN) URINE COMMENT CULTURE INDICATED URINE CULTURES ARE SET-UP BASED ON THE FOLLOWING CRITERIA:POSITIVE NITRITEPOSITIVE LEUKOCYTE ESTERASEGREATER THAN 10 WHITE BLOOD CELLSMODERATE (2+) OR GREATER BACTERIA Urine: (ERENDIRA: 03/19/2017 02:17) ( [facility] 03/19/2017 02:35) Final results Test Result Flag Units (Reference) URINE NEGATIVE Culture, Urine: (ERENDIRA: 03/19/2017 02:17) ( [facility] 03/21/2017 12:33) Final results Test Result Flag Units (Reference) CULTURE, URINE DATE: 03/21/17 NO SIGNIFICANT ISOLATION: NO SIGNIFICANT ISOLATION PRELIM REPORT: FINAL REPORT . PROGRESS AND PROCEDURES Patient/family counseled. Old medical records reviewed. Disposition: Discharged. Condition: stable. CLINICAL IMPRESSION Mild vaginal bleeding. Acute urinary tract infection with cystitis. INSTRUCTIONS Drink plenty of fluids. Warnings: Further evaluation is necessary. GENERAL WARNINGS: Return or contact your physician immediately if your condition worsens or changes unexpectedly, if not improving as expected, or if other problems arise. Prescription Medications: Macrobid 100 mg: Take 1 capsule orally every 12 hours for 7 days. No refills. Substitution is permissible. Follow-up: Follow up with your doctor tomorrow. Call for the next available appointment. Understanding of the discharge instructions verbalized by patient. (Electronically signed by Shantanu Hughes MD 03/25/2017 9:27)
--- NOTE | 2017-03-25 09:27 | ED MED RECONCILIATION SUMMARY ---
Patient: KATHERINE LIN Medication Reconciliation Report [facility] VisitID: [id number] [address] [place] [address] 21y, F Registration Date/Time: 03/19/2017 Weight: 92.9 kg Height/Length: 62 in. BMI: 37.5 ALLERGIES: Amoxicillin, Compazine, Penicillin, Sulfa Antibiotics The patient's Home Medications are listed below: NONE. The source(s) of the original Home Medication information: Not obtained. The following Medications were given to the patient in the Emergency Department: None. The following Medications were prescribed to the patient: Macrobid 100 mg: Take 1 capsule orally every 12 hours for 7 days. No refills. Substitution is permissible. -- Shantanu Hughes MD
--- NOTE | 2017-03-25 09:27 | ED DISCHARGE INSTRUCTIONS ---
Patient: KATHERINE LIN General Instructions [facility] VisitID: [id number] [place] [address] 21y, F Registration Date/Time: 03/19/2017 Mild vaginal bleeding. Acute urinary tract infection with cystitis. INSTRUCTIONS Drink plenty of fluids. Warnings: Further evaluation is necessary. GENERAL WARNINGS: Return or contact your physician immediately if your condition worsens or changes unexpectedly, if not improving as expected, or if other problems arise. Prescription Medications: Macrobid 100 mg: Take 1 capsule orally every 12 hours for 7 days. No refills. Substitution is permissible. Follow-up: Follow up with your doctor tomorrow. Call for the next available appointment. Understanding of the discharge instructions verbalized by patient. ADDITIONAL INFORMATION Bladder Infection,Female (Adult) A bladder infection ("cystitis" or "UTI") usually causes a constant urge to urinate and a burning when passing urine. Urine may be cloudy, smelly or dark. There may be pain in the lower abdomen. A bladder infection occurs when bacteria from the vaginal area enter the bladder opening (urethra). This can occur from sexual intercourse, wearing tight clothing, dehydration and other factors. Home Care: Drink lots of fluids (at least 6-8 glasses a day, unless you must restrict fluids for other medical reasons). This will force the medicine into your urinary system and flush the bacteria out of your body. Avoid sexual intercourse until your symptoms are gone. Avoid caffeine, alcohol and spicy foods. These can irritate the bladder. A bladder infection is treated with antibiotics. You may also be given Pyridium (generic = phenazopyridine) to reduce the burning sensation. This medicine will cause your urine to become a bright orange color. The orange urine may stain clothing. You may wear a pad or panty-liner to protect clothing. Preventing Future Infections: Always wipe from front to back after a bowel movement. Keep the genital area clean and dry. Drink plenty of fluids each day to avoid dehydration. Both sexual partners should wash before intercourse. Urinate right after intercourse to flush out the bladder. Wear cotton underwear and cotton-lined panty hose; avoid tight-fitting pants. If you are on control pills and are having frequent bladder infections, discuss with your doctor. Follow Up: Return to this facility or see your doctor if ALL symptoms are not gone after three days of treatment. Get Prompt Medical Attention if any of the following occur: Fever of 100.4F (38C) or higher, or as directed by your healthcare provider No improvement by the third day of treatment Increasing back or abdominal pain Repeated vomiting; unable to keep medicine down Weakness, dizziness or fainting Vaginal discharge Pain, redness or swelling in the labia (outer vaginal area) Irregular Vaginal Bleeding This is a condition in which bleeding occurs at unexpected times of the month. The bleeding may be heavier or superintendent marine oil terminal than usual. Heavy bleeding may lead to anemia. If severe enough, anemia may cause you to look pale and feel weak or fatigued. You might have shortness of breath even with little exertion. The female hormones produced in your body every month may be out of balance. This imbalance leads to bleeding. Causes could include an ovarian cyst, emotional stress, pelvic infection. Failure to ovulate during your last cycle may also cause this problem. Home Care: If bleeding is heavy, rest and avoid heavy exertion. You may use acetaminophen (Tylenol) or ibuprofen (Motrin, Advil) to control pain, unless another pain medicine was prescribed. [NOTE: If you have chronic liver or kidney disease or ever had a stomach ulcer or GI bleeding, talk with your doctor before using these medicines.] Iron supplements may be prescribed for anemia. It takes about 4-6 weeks for the iron to correct the anemia. Take the medicine as directed. See your doctor for a repeat blood test after you finish the iron treatment. If hormones were prescribed to control your bleeding, take them exactly as directed. If you were prescribed a medicine called Provera (medroxyprogesterone), the bleeding should stop while you are taking it. Another period will start a few days after you finish the medicine. Follow Up with your doctor, or as advised, within the next 1-2 days if heavy bleeding continues. Otherwise, follow up within the next 1-2 weeks. Get Prompt Medical Attention if any of the following occur: Bleeding becomes heavy (soaking one pad an hour for three hours) Fever of 100.4F (38C) or higher, or as directed by your healthcare provider Increase in abdominal pain Weakness, dizziness or fainting Nitrofurantoin, Nitrofurantoin, Macrocrystalline Oral capsule What is this medicine? NITROFURANTOIN (nicolasa azarmariely) is an antibiotic. It is used to treat urinary tract infections. How should I use this medicine? Take this medicine by mouth with a glass of water. Follow the directions on the prescription label. Take this medicine with food or milk. Take your doses at regular intervals. Do not take your medicine more often than directed. Do not stop taking except on your doctor's advice. Talk to your new accounts representative regarding the use of this medicine in children. While this drug may be prescribed for selected conditions, precautions do apply. What side effects may I notice from receiving this medicine? Side effects that you should report to your doctor or health nurse behavioral health care as soon as possible: allergic reactions like skin rash or hives, swelling of the face, lips, or tongue chest pain cough difficulty breathing dizziness, drowsiness fever or infection joint aches or pains pale or blue-tinted skin redness, blistering, peeling or loosening of the skin, including inside the mouth tingling, burning, pain, or numbness in hands or feet unusual bleeding or bruising unusually weak or tired yellowing of eyes or skin Side effects that usually do not require medical attention (report to your doctor or health nurse behavioral health care if they continue or are bothersome): dark urine diarrhea headache loss of appetite nausea or vomiting temporary hair loss What may interact with this medicine? antacids containing magnesium trisilicate probenecid quinolone antibiotics like ciprofloxacin, lomefloxacin, norfloxacin and ofloxacin sulfinpyrazone What if I miss a dose? If you miss a dose, take it as soon as you can. If it is almost time for your next dose, take only that dose. Do not take double or extra doses. Where should I keep my medicine? Keep out of the reach of children. Store at room temperature between 15 and 30 degrees C (59 and 86 degrees F). Protect from light. Throw away any unused medicine after the expiration date. What should I tell my health care provider before I take this medicine? They need to know if you have any of these conditions: anemia diabetes islakiq-8-[id number] dehydrogenase deficiency kidney disease liver disease lung disease other chronic illness an unusual or allergic reaction to nitrofurantoin, other antibiotics, other medicines, foods, dyes or preservatives or trying to get breast-feeding What should I watch for while using this medicine? Tell your doctor or health nurse behavioral health care if your symptoms do not improve or if you get new symptoms. Drink several glasses of water a day. If you are taking this medicine for a long time, visit your doctor for regular checks on your progress. If you are diabetic, you may get a false positive result for sugar in your urine with certain brands of urine tests. Check with your doctor. You have been given the following additional information: Bladder Infection, Female (Adult) Dysfunctional Uterine Bleeding Nitrofurantoin, Nitrofurantoin, Macrocrystalline Oral capsule (Electronically signed by Shantanu Hughes MD 03/25/2017 9:27)
--- NOTE | 2017-03-25 09:27 | ED DISCHARGE INSTRUCTIONS ---
Patient: KATHERINE LIN General Instructions [facility] VisitID: [id number] [place] [address] 21y, F Registration Date/Time: 03/19/2017 Mild vaginal bleeding. Acute urinary tract infection with cystitis. INSTRUCTIONS Drink plenty of fluids. Warnings: Further evaluation is necessary. GENERAL WARNINGS: Return or contact your physician immediately if your condition worsens or changes unexpectedly, if not improving as expected, or if other problems arise. Prescription Medications: Macrobid 100 mg: Take 1 capsule orally every 12 hours for 7 days. No refills. Substitution is permissible. Follow-up: Follow up with your doctor tomorrow. Call for the next available appointment. Understanding of the discharge instructions verbalized by patient. ADDITIONAL INFORMATION Bladder Infection,Female (Adult) A bladder infection ("cystitis" or "UTI") usually causes a constant urge to urinate and a burning when passing urine. Urine may be cloudy, smelly or dark. There may be pain in the lower abdomen. A bladder infection occurs when bacteria from the vaginal area enter the bladder opening (urethra). This can occur from sexual intercourse, wearing tight clothing, dehydration and other factors. Home Care: Drink lots of fluids (at least 6-8 glasses a day, unless you must restrict fluids for other medical reasons). This will force the medicine into your urinary system and flush the bacteria out of your body. Avoid sexual intercourse until your symptoms are gone. Avoid caffeine, alcohol and spicy foods. These can irritate the bladder. A bladder infection is treated with antibiotics. You may also be given Pyridium (generic = phenazopyridine) to reduce the burning sensation. This medicine will cause your urine to become a bright orange color. The orange urine may stain clothing. You may wear a pad or panty-liner to protect clothing. Preventing Future Infections: Always wipe from front to back after a bowel movement. Keep the genital area clean and dry. Drink plenty of fluids each day to avoid dehydration. Both sexual partners should wash before intercourse. Urinate right after intercourse to flush out the bladder. Wear cotton underwear and cotton-lined panty hose; avoid tight-fitting pants. If you are on control pills and are having frequent bladder infections, discuss with your doctor. Follow Up: Return to this facility or see your doctor if ALL symptoms are not gone after three days of treatment. Get Prompt Medical Attention if any of the following occur: Fever of 100.4F (38C) or higher, or as directed by your healthcare provider No improvement by the third day of treatment Increasing back or abdominal pain Repeated vomiting; unable to keep medicine down Weakness, dizziness or fainting Vaginal discharge Pain, redness or swelling in the labia (outer vaginal area) Irregular Vaginal Bleeding This is a condition in which bleeding occurs at unexpected times of the month. The bleeding may be heavier or ocean biologist than usual. Heavy bleeding may lead to anemia. If severe enough, anemia may cause you to look pale and feel weak or fatigued. You might have shortness of breath even with little exertion. The female hormones produced in your body every month may be out of balance. This imbalance leads to bleeding. Causes could include an ovarian cyst, emotional stress, pelvic infection. Failure to ovulate during your last cycle may also cause this problem. Home Care: If bleeding is heavy, rest and avoid heavy exertion. You may use acetaminophen (Tylenol) or ibuprofen (Motrin, Advil) to control pain, unless another pain medicine was prescribed. [NOTE: If you have chronic liver or kidney disease or ever had a stomach ulcer or GI bleeding, talk with your doctor before using these medicines.] Iron supplements may be prescribed for anemia. It takes about 4-6 weeks for the iron to correct the anemia. Take the medicine as directed. See your doctor for a repeat blood test after you finish the iron treatment. If hormones were prescribed to control your bleeding, take them exactly as directed. If you were prescribed a medicine called Provera (medroxyprogesterone), the bleeding should stop while you are taking it. Another period will start a few days after you finish the medicine. Follow Up with your doctor, or as advised, within the next 1-2 days if heavy bleeding continues. Otherwise, follow up within the next 1-2 weeks. Get Prompt Medical Attention if any of the following occur: Bleeding becomes heavy (soaking one pad an hour for three hours) Fever of 100.4F (38C) or higher, or as directed by your healthcare provider Increase in abdominal pain Weakness, dizziness or fainting Nitrofurantoin, Nitrofurantoin, Macrocrystalline Oral capsule What is this medicine? NITROFURANTOIN (nicolasa azarmariely) is an antibiotic. It is used to treat urinary tract infections. How should I use this medicine? Take this medicine by mouth with a glass of water. Follow the directions on the prescription label. Take this medicine with food or milk. Take your doses at regular intervals. Do not take your medicine more often than directed. Do not stop taking except on your doctor's advice. Talk to your footwear production machine operator regarding the use of this medicine in children. While this drug may be prescribed for selected conditions, precautions do apply. What side effects may I notice from receiving this medicine? Side effects that you should report to your doctor or health patient care specialist as soon as possible: allergic reactions like skin rash or hives, swelling of the face, lips, or tongue chest pain cough difficulty breathing dizziness, drowsiness fever or infection joint aches or pains pale or blue-tinted skin redness, blistering, peeling or loosening of the skin, including inside the mouth tingling, burning, pain, or numbness in hands or feet unusual bleeding or bruising unusually weak or tired yellowing of eyes or skin Side effects that usually do not require medical attention (report to your doctor or health patient care specialist if they continue or are bothersome): dark urine diarrhea headache loss of appetite nausea or vomiting temporary hair loss What may interact with this medicine? antacids containing magnesium trisilicate probenecid quinolone antibiotics like ciprofloxacin, lomefloxacin, norfloxacin and ofloxacin sulfinpyrazone What if I miss a dose? If you miss a dose, take it as soon as you can. If it is almost time for your next dose, take only that dose. Do not take double or extra doses. Where should I keep my medicine? Keep out of the reach of children. Store at room temperature between 15 and 30 degrees C (59 and 86 degrees F). Protect from light. Throw away any unused medicine after the expiration date. What should I tell my health care provider before I take this medicine? They need to know if you have any of these conditions: anemia diabetes hojojle-6-fhiaubfie dehydrogenase deficiency kidney disease liver disease lung disease other chronic illness an unusual or allergic reaction to nitrofurantoin, other antibiotics, other medicines, foods, dyes or preservatives or trying to get breast-feeding What should I watch for while using this medicine? Tell your doctor or health patient care specialist if your symptoms do not improve or if you get new symptoms. Drink several glasses of water a day. If you are taking this medicine for a long time, visit your doctor for regular checks on your progress. If you are diabetic, you may get a false positive result for sugar in your urine with certain brands of urine tests. Check with your doctor. You have been given the following additional information: Bladder Infection, Female (Adult) Dysfunctional Uterine Bleeding Nitrofurantoin, Nitrofurantoin, Macrocrystalline Oral capsule (Electronically signed by Shantanu Hughes MD 03/25/2017 9:27)
--- NOTE | 2017-03-25 09:27 | ED MED RECONCILIATION SUMMARY ---
Patient: KATHERINE LIN Medication Reconciliation Report [facility] VisitID: [id number] [address] [place] [address] 21y, F Registration Date/Time: 03/19/2017 Weight: 92.9 kg Height/Length: 62 in. BMI: 37.5 ALLERGIES: Amoxicillin, Compazine, Penicillin, Sulfa Antibiotics The patient's Home Medications are listed below: NONE. The source(s) of the original Home Medication information: Not obtained. The following Medications were given to the patient in the Emergency Department: None. The following Medications were prescribed to the patient: Macrobid 100 mg: Take 1 capsule orally every 12 hours for 7 days. No refills. Substitution is permissible. -- Shantanu Hughes MD
--- NOTE | 2017-03-25 09:27 | ED MAR SUMMARY ---
..... Medication Administration Record [facility] [address] [place], [place] [id number] Patient: KATHERINE LIN Visit ID: [id number] 21y, F Weight: 92.9 kg Height/Length: 62 in BMI: 37.5 ALLERGIES: Amoxicillin, Compazine, Penicillin, Sulfa Antibiotics
--- NOTE | 2017-03-25 09:27 | ED MAR SUMMARY ---
..... Medication Administration Record [facility] [address] [place], [place] [id number] Patient: KATHERINE LIN Visit ID: [id number] 21y, F Weight: 92.9 kg Height/Length: 62 in BMI: 37.5 ALLERGIES: Amoxicillin, Compazine, Penicillin, Sulfa Antibiotics
== END 2017-03-19 03:19 | disposition home or self-care (01) ==
LOC: ED SRH 01:54
DX: N93.9 Abnormal uterine and vaginal bleeding, unspecified (principal); N30.90 Cystitis, unspecified without hematuria; Z88.0 Allergy status to penicillin; Z88.1 Allergy status to other antibiotic agents; Z88.2 Allergy status to sulfonamides; Z88.8 Allergy status to other drugs, medicaments and biological substances
CPT/HCPCS: 90004; 90469; 93070